=== PATIENT | female | born 1985 | race Hispanic/Latino ===

== ENCOUNTER 2020-07-22 19:06 | Emergency (ER) | payer BC ==
[~2020-07-22] VITALS: Ht 160 cm; Wt 83.0 kg
[2020-07-22] MEDS ORDERED: NORCO 5-325 TA1 EACH PO (22:47)
--- NOTE | 2020-07-23 13:54 | EKG ---
[facility] [address] [facility] [place], [place] [address] elevation, probably due to early repolarization Borderline ECG No previous ECGs available Confirmed by DANIELA MCCORMACK DO ([id number]) on 07/23/2020 1:53:51 PM Electronically Signed By: DANIELA MCCORMACK DO 07/23/20 1354 PATIENT NAME: JOLIE BURCIAGA Electrocardiogram DATE OF : 89 PHYSICIAN: DANIELA MCCORMACK DO REPORT #: [id number] REPORT IS CONFIDENTIAL AND NOT TO BE RELEASED WITHOUT AUTHORIZATION
== END 2020-07-22 23:25 | disposition home or self-care (01) ==
LOC: ED 19:06
DX: O99.891 Other specified diseases and conditions complicating pregnancy (principal); R07.89 Other chest pain; Z20.828 Contact with and (suspected) exposure to other viral communicable diseases
CPT/HCPCS: 71260; 80053; 84484; 85025; 85379; 93005; 93010; 99285-25; C9803; Q9967

== ENCOUNTER 2021-01-18 04:52 | Inpatient (IN) | payer BC ==
[~2021-01-18] VITALS: Ht 160 cm; Wt 84.8 kg
[~2021-01-18 04:52] MED LIST: NORCO 5-325 TA1 EACH PO
[2021-01-18] MEDS ORDERED: VITAFOL-OB+DHA1 EACH PO (06:12)
[2021-01-18] MEDS ORDERED: NOVOLIN 70100 UNIT/2 INJ ×2 (06:14→06:15)
--- NOTE | 2021-01-18 10:32 | PR ---
[facility] [address] [facility] [place], [place] [address] Signed Progress Notes IP Datetime Report Generated by CPN: 01/18/2021 10:32 PROGRESS NOTES: [id number] Impression: Normal Progression of Labor; Reassuring Heart Rate Procedures: Sterile Vag Exam Plan: Continue Present Management VITAL SIGNS: [id number] Vital Signs: Reviewed EXAM: [id number] Dilatation: 3.5 Effacement: 70 Station: -3 Contractions: Rare MEMBRANES: [id number] Comments: Pt seen and examined. Comfortable w/ epidural. Reviewed anticipated course of labor/delivery. All questions answered FETUS A: [id number] FHR Baseline: 150 Variability: Moderate 6-25bpm Accelerations: 15X15 Decelerations: None FHR Category: Category I Presentation: Vertex Comments on Fetus A: No evidence of metabolic acidosis FETUS B: [id number] Signing Physician: Elijah Conrad DO Copies: ~ *Electronically Signed* 01/18/21 1032 ELIJAH CONRAD DO PATIENT NAME: JOLIE BURCIAGA PROGRESS NOTE DATE OF : 89 PHYSICIAN: ELIJAH CONRAD DO RPT #: [id number] REPORT IS CONFIDENTIAL AND NOT TO BE RELEASED WITHOUT AUTHORIZATION
--- NOTE | 2021-01-18 14:47 | PR ---
[facility] [facility] [address] [facility] [place], [place] [address] Signed Progress Notes IP Datetime Report Generated by CPN: 01/18/2021 14:47 PROGRESS NOTES: [id number] Impression: Normal Progression of Labor; Reassuring Heart Rate Procedures: Intrauterine Pressure Catheter; Sterile Vag Exam Plan: Continue Present Management; Anticipate Vaginal Delivery Informed Consent Obtain: Vaginal Delivery VITAL SIGNS: [id number] Vital Signs: Reviewed EXAM: [id number] Dilatation: 7.0 Effacement: 90 Station: -2 Contractions: Rare MEMBRANES: [id number] Comments: Pt seen and examined. Doing well. Comfortable w/ epidural. IUPC placed after noting frequent contractions but slow cervical change. Low amplitude CTXs noted. Will start low dose pitocin FETUS A: [id number] FHR Baseline: 150 Variability: Moderate 6-25bpm Accelerations: 15X15 Decelerations: None FHR Category: Category I Presentation: Vertex Comments on Fetus A: No evidence of metabolic acidosis FETUS B: [id number] Signing Physician: Elijah Conrad DO Copies: ~ *Electronically Signed* 01/18/21 1447 ELIJAH CONRAD DO PATIENT NAME: JOLIE BURCIAGA PROGRESS NOTE DATE OF : 89 PHYSICIAN: ELIJAH CONRAD DO RPT #: [id number] REPORT IS CONFIDENTIAL AND NOT TO BE RELEASED WITHOUT AUTHORIZATION
--- NOTE | 2021-01-18 17:41 | NUR ---
COVID SWAB COLLECTED , SENT TO [facility], NO COMPLICATIONS
--- NOTE | 2021-01-19 07:44 | PR ---
[facility] [address] [facility] [place], [place] [address] Signed PP Progress Notes Datetime Report Generated by CPN: 01/19/2021 07:44 SUBJECTIVE: [id number] Pain: Within Normal Limits Flatus: Yes Bowel Movement: No Vital Signs: [id number] Vital Signs: Reviewed; Within Normal Limits Cardiovascular: Normal Respiratory: Normal Abdomen/Uterus: Normal Lochia: Normal Vulva/Perineum: Not Done Breasts: Not Done CVA Tenderness: Normal Extremities: Normal Incision: Not Applicable Progress: Normal Exam Comments: Fundus firm U-2 nontender IMPRESSION/PLAN/PROCEDURES: [id number] Impression: Normal Progression Plan: Discharge Progress Notes: Pt seen and examined. Doing well. Ambulating, voiding, and tolerating full diet. Pain and lochia minimal. well. No fevers/chills or other concerns. Desires d/c home today if able to be discharged. Reviewed discharge teaching in detail. Undecided on pp contraception. No other concerns. F/U 2 wks Signing Physician: Elijah Conrad DO Copies: ~ *Electronically Signed* 01/19/21 0744 ELIJAH CONRAD DO PATIENT NAME: JOLIE BURCIAGA PROGRESS NOTE DATE OF : 89 PHYSICIAN: ELIJAH CONRAD DO RPT #: [id number] REPORT IS CONFIDENTIAL AND NOT TO BE RELEASED WITHOUT AUTHORIZATION
--- NOTE | 2021-01-21 15:33 | PATH ---
[facility] [address] [place], [place] [address] Signed SPECIMEN(S): A PLACENTA SPECIMEN SOURCE: A. PLACENTA CLINICAL HISTORY: Mother's age: 33. OB history: G3, P2, A0. Gestational age: 39.4. Infant's weight: 8 pounds 4 ounces. score: 8/9. Length of umbilical cord at delivery: within normal limits. Rhogam: no. Antibody screen: negative. Maternal serologies: Rubella immune, RPR nonreactive, hepatitis screen negative, GBS negative. Specific issues of concern: succenturiate lobe. FINAL PATHOLOGIC DIAGNOSIS: Placenta, third trimester: - Forte placenta with succenturiate lobe, appropriate weight for stated gestational age of 39 weeks. - Umbilical cord: Three-vessel umbilical cord with no histopathologic abnormality. - membranes: No histopathologic abnormality. - Placental disc: Chorionic villi with mature villous morphology in both main lobe and succenturiate lobe. NAL:cml:C2NR MICROSCOPIC EXAMINATION: Histologic sections of all submitted blocks are examined by light microscopy. These findings, together with the gross examination, support the pathologic diagnosis. GROSS DESCRIPTION: The specimen, labeled "MT, placenta," is received fresh and placed in formalin and consists of forte discoid placenta with an accessory lobe connected by membranes with the following parameters: Umbilical cord: Insertion eccentric, 1.9 cm from the margin, measurement 43.5 x 1.4 cm; trivascular. Cord coiling index (per 10 cm): 2. Lesions: Not grossly identified. Membranes: Insertion site: Marginal, adhikari/translucent, rupture site grossly indeterminate. Slightly torn from the disc prior to receiving in the gross room. Other: Not grossly identified. Chorionic Plate: Normal radiating vascular pattern, [blue-purple and shiny]. Lesions: Not grossly identified. Other: Not grossly identified. PATIENT NAME: JOLIE BURCIAGA PATHOLOGY DATE OF : 89 REPORT #: [id number] PHYSICIAN: CHRISTOPH PATHOLOGY PCP: NO PRIMARY CARE PHYSICIAN REPORT IS CONFIDENTIAL AND NOT TO BE RELEASED WITHOUT AUTHORIZATION [facility] [address] [place], [place] [address] Signed Maternal Surface: Normal cotyledons, intact. Lesions: Multiple, focal areas of adhikari-white, calcification from 0.2 to 1.7 cm in greatest dimension and comprising approximately 10% of the surface. Measurement: The main lobe measures 17.6 x 14.2 x 2.9 cm and the accessory lobe measures 17.2 x 9.6 x 2.4 cm. Weight (trimmed): The main lobe weighs 392 g and the accessory lobe weighs 154 g Cut Surface: Maroon and spongy. Lesions: Not grossly identified. Basal plate fibrin 0.1 cm in thickness. Other Findings: Not grossly identified. Cassette Summary: (A1) membranes and umbilical cord (A2) membranes between two lobes (A3) central section of main lobe including maternal surface calcification (A4) eccentric section of main lobe including maternal surface calcification (A5) eccentric section of main lobe (A6-A7) accessory lobe AI (under the direct supervision of a pathologist) The Gross Description was prepared using a voice recognition system. The report was reviewed for accuracy; however, sound-alike word errors, addition and/or deletions may occur. If there is any question about this report, please contact Client Services. PERFORMING LABORATORY: The technical component was performed by [employer], [address] [place] [id number] (Ferryboat Operator Helper: Brianna Horn MD; CLIA# [id number]). Professional interpretation was performed by [employer], [facility], [address] [place] [id number] (CLIA# [id number]). Diagnostician: Madeleine Mejia MD Pathologist Electronically Signed 01/21/2021 Copies: ~ PATIENT NAME: JOLIE BURCIAGA PATHOLOGY DATE OF : 89 REPORT #: [id number] PHYSICIAN: [facility] PCP: NO PRIMARY CARE PHYSICIAN REPORT IS CONFIDENTIAL AND NOT TO BE RELEASED WITHOUT AUTHORIZATION
== END 2021-01-19 18:49 | disposition home or self-care (01) | DRG 807 ==
LOC: FBC 04:52
PROVIDERS: ADMIT Obstetrics & Gynecology; ATTEND Obstetrics & Gynecology
PROC: 10E0XZZ Delivery of Products of Conception, External Approach (ICD-10-PCS; principal; 2021-01-18)
PROC: 0HQ9XZZ Repair Perineum Skin, External Approach (ICD-10-PCS; 2021-01-18)
PROC: 10907ZC Drainage of Amniotic Fluid, Therapeutic from Products of Conception, Via Natural or Artificial Opening (ICD-10-PCS; 2021-01-18)
PROC: 10H07YZ Insertion of Other Device into Products of Conception, Via Natural or Artificial Opening (ICD-10-PCS; 2021-01-18)
PROC: 00HU33Z Insertion of Infusion Device into Spinal Canal, Percutaneous Approach (ICD-10-PCS; 2021-01-18)
PROC: 3E0R3BZ Introduction of Anesthetic Agent into Spinal Canal, Percutaneous Approach (ICD-10-PCS; 2021-01-18)
DX: O24.424 Gestational diabetes mellitus in childbirth, insulin controlled (principal); Z37.0 Single live birth; Z3A.39 39 weeks gestation of pregnancy; Z20.822 Contact with and (suspected) exposure to COVID-19; O70.0 First degree perineal laceration during delivery; O43.193 Other malformation of placenta, third trimester; Z87.891 Personal history of nicotine dependence
CPT/HCPCS: 01960; 85027; A9270; C9803; J1815; J2001; J2250; J2590; J2795; J7030; J7042; J7121; U0003